=== PATIENT | male | born 1940 | race Caucasian/White ===

== ENCOUNTER 2024-03-03 18:25 | Emergency (ER) | payer MEDICARE, OTHER, SELFPAY ==
[2024-03-03 18:29] VITALS: BP 184/94; PULSE 94; RESP 22; TEMP 36.1; O2SAT 98; BMI 32.3
[2024-03-03 21:55] VITALS: PULSE 93; O2SAT 97
[2024-03-03 22:00] VITALS: PULSE 86; O2SAT 96
--- NOTE | 2024-03-03 23:00 | ED_ITS ---
HPI - Back Pain/Injury General Chief Complaint: Back Pain/Injury Stated Complaint: back pain Time Seen by Provider: 03/03/24 21:47 Source: patient History of Present Illness HPI Narrative: 83-year-old male presents for evaluation of 1 month of progressively worsening lower lumbar back pain. Pain worse when lying down flat, improved with sitting up. Has been taking a muscle relaxer at home for pain relief, he was not remember the name of the muscle relaxer he has been taking. Denies bowel or bladder incontinence, denies saddle anesthesia, denies trauma, use of blood thinners. Denies history of cancer. Patient does not follow up with primary care doctor's. Related Data Previous Rx's Medication Instructions Recorded methocarbamol 500 mg tablet 500 mg PO TID #30 tabs 03/04/24 methylprednisolone 4 mg tablets in 4 mg PO DAILY #21 ea 03/04/24 a dose pack (Medrol (Lakhwinder)) tramadol 50 mg tablet 50 mg PO Q8H PRN pain #14 tabs 03/04/24 Allergies Allergy/AdvReac Type Severity Reaction Status Date / Time No Known Drug Allergies Allergy Verified 03/03/24 18:29 Patient History Social History Smoking Status: Current every day smoker Smoking Status: Current every day smoker tobacco type: pipe alcohol intake frequency: 0-2 drinks per day Alcohol type: hard liquor Substance Use Type: does not use Exam Initial Vital Signs Initial Vital Signs: Vital Signs Temperature 97 F L 03/03/24 18:29 Pulse Rate 94 H 03/03/24 18:29 Respiratory Rate 22 03/03/24 18:29 Blood Pressure 184/94 H 03/03/24 18:29 Pulse Oximetry 98 03/03/24 18:29 Oxygen Delivery Method Room Air 03/03/24 18:29 Const: Awake, alert, no acute distress, nontoxic appearing MSK: Atraumatic, lower lumbar tenderness midline Skin: Warm, Dry, intact, no rashes Neuro: AO x3, CN II-XII grossly intact, moves all extremities Course Orders Ordered: ED Orders 03/03/24 22:30 Urine Culture Stat Urine Microscopic Stat 03/03/24 22:59 CT lumbar spine wo con Stat Discontinued Medications Lidocaine (Lidocaine 5% Patch) 1 each TOP NOW ONE Stop: 03/03/24 23:00 Last Admin: 03/03/24 23:22 Dose: 1 each Documented By: ANDREA Oxycodone HCl (Oxycodone Ir 5 Mg Tablet) 5 mg PO NOW ONE Stop: 03/03/24 23:00 Last Admin: 03/03/24 23:22 Dose: 5 mg Documented By: ANDREA Vital Signs Vital signs: Vital Signs - 8 hr 03/03/24 18:29 Temperature 97 F L Pulse Rate 94 H Respiratory Rate 22 Blood Pressure 184/94 H Pulse Oximetry 98 Oxygen Delivery Method Room Air MDM - Back Pain/Injury Differential Diagnosis Differential diagnosis: Likely lumbar radiculopathy, sciatica and strain of lumbar region Lab Data Labs: Lab Results 03/03/24 Range/Units 22:30 Urine RBC 0-1/hpf (0-5/HPF) Urine WBC 10-30/hpf H (0-5/HPF) Ur Squamous Epith Cells 0-1 /hpf (0-5/HPF) Urine Bacteria Many (>30) H (None) Ur Culture Indicated? Specimen cultured Vol Urine Centrifuged 10ml (spun) Urine Dip Bedside Urine Glucose Negative Bedside Urine Bilirubin - Negative Bedside Urine Ketone - Negative Urine Specific [place] 1.025 Bedside Urine Occult Blood + Bedside Urine pH 5.5 Bedside Urine Protein +/- 15 Bedside Urine Urobilinogen - Negative Bedside Urine Nitrite + Positive Bedside Urine Leukocytes + [address] - cervical spine: Radiologist's Impression: PROCEDURE: CT LUMBAR SPINE WO CON INDICATIONS: 1 MO WORSENING MIDLINE LUMBAR PAIN TECHNIQUE: Noncontrast 3 mm thick sections acquired from the T12 level to the sacrum. Sagittal and coronal reformats were constructed. For radiation dose reduction, the following was used: automated exposure control. COMPARISON: None. FINDINGS: Image quality: Excellent. Bones: Mild levoconvex curvature. No acute vertebral body compression fractures. No suspicious lytic or blastic bony lesions. No pars defects. Mild degenerative changes at the sacroiliac joints with anterior osseous bridging. T12-L1: No significant spinal canal stenosis or neural foraminal narrowing. L1-L2: Mild circumferential disc bulging and bilateral facet hypertrophy, which result in mild narrowing of the neural foramina without significant spinal canal stenosis. L2-L3: Circumferential disc bulging and bilateral facet hypertrophy with buckling of the ligamentum flavum. Findings result in mild narrowing of the spinal canal as well as mild bilateral neural foraminal narrowing. L3-L4: Circumferential disc bulging with moderate to severe bilateral facet hypertrophy and buckling of the ligamentum flavum, which result in moderate to severe narrowing of the spinal canal as well as moderate bilateral neural foraminal narrowing. L4-L5: Circumferential disc bulging with moderate to severe bilateral facet hypertrophy and buckling of the ligamentum flavum. Findings result in moderate to severe narrowing of the spinal canal with effacement of the lateral recesses and moderate to severe left and moderate right neural foraminal narrowing. L5-S1: Circumferential disc bulging and bilateral facet hypertrophy result in severe left and moderate right neural foraminal narrowing without significant spinal canal stenosis. Soft tissues: No retroperitoneal masses or hematomas. Visualized aorta is normal in caliber. A calcified gallstone is present. Exophytic right renal cyst with small peripheral calcification. IMPRESSION: 1. Moderate severe multilevel degenerative disc disease and facet hypertrophy as described in detail in the body of the report. 2. High-grade spinal canal stenosis at the L3-4 and L4-5 disc space levels. 3. High-grade neural foraminal narrowing is seen at the L4-5 and L5-S1 levels on the left. Approved by: Jose Us M.D. on 03/03/2024 at 23:52 MDM Narrative Medical decision making narrative: 1 month of worsening atraumatic lumbar back pain. No signs or symptoms of cauda equina. Patient able to move all extremities on exam with no neurologic deficits. Based on patient's age a CT of the lumbar spine was ordered. CT shows moderate to severe degenerative change and stenosis of the spine. Patient informed of imaging results. Referred to both ortho spine and pain management. Discharged on muscle relaxers, pain medications, and steroid pack. Patient discharged home with ride. Discharge Plan Departure Patient Disposition: Home Clinical Impression: Degenerative joint disease of low back Instructions: DI for Degenerative Disc Disease Activity Restrictions/Additional Instructions: Your CT today shows that you have severe degenerative changes of your lower back. A steroid prescription and muscle relaxers as well as pain medications has been sent to your pharmacy. I highly recommend following up with a spine doctor, and a referral has been provided. If you notice numbness, weakness of your extremities, or are unable to urinate please return for repeat evaluation. Take 1000 mg of Tylenol every 6 hours for pain, take no more than 4000 mg of Tylenol daily. Do not take the pain medication with alcohol or before driving as it may cause dizziness and increase your risk of falls. IMPRESSION: 1. Moderate severe multilevel degenerative disc disease and facet hypertrophy as described in detail in the body of the report. 2. High-grade spinal canal stenosis at the L3-4 and L4-5 disc space levels. 3. High-grade neural foraminal narrowing is seen at the L4-5 and L5-S1 levels on the left. Prescriptions: New methylprednisolone [Medrol (Lakhwinder)] 4 mg tablets,dose pack 4 mg PO DAILY Qty: 21 0RF methocarbamol 500 mg tablet 500 mg PO TID Qty: 30 0RF tramadol 50 mg tablet 50 mg PO Q8H PRN (Reason: pain) Qty: 14 0RF Referrals: Clau Juan PA-C [Primary Care Provider] - Tony Medina MD [Physician] - Lawrence Malagon MD [Physician] - Stand Alone Forms: Patient Portal/API
[2024-03-03] MEDS: LIDOCAINE 5% PATCH 1 EACH TOP (23:22)
[2024-03-03] MEDS: OXYCODONE IR 5 MG TABLET PO (23:22)
[2024-03-03 23:29] VITALS: PULSE 93; O2SAT 90
[2024-03-03 23:30] VITALS: PULSE 92; O2SAT 97
[2024-03-03 23:47] LABS: Bacteria Urine Many (>30); Culture Indicated Urine Specimen Cultured; RBC Urine 0-1/HPF (0-5/HPF); Squamous Epithelial Cell Urine 0-1 /HPF (0-5/HPF); Urine Volume 10mL (spun); WBC Urine 10-30/HPF (0-5/HPF)
[2024-03-04] VITALS: PULSE 57; O2SAT 96
[2024-03-04 00:12] VITALS: BP 143/93; PULSE 86; O2SAT 96
--- NOTE | 2024-03-06 18:41 | PC.NURSE ---
Urine Cx+ -- RX called to [facility], Keflex 500mg PO 1 BID x 7days #[address] Guerra. Spoke to Pt's who is aware.
== END 2024-03-04 00:30 | disposition home or self-care (01) ==
PROVIDERS: Emergency Provider Emergency Medicine; PCP Physician Assistant Medical
DX: M47.816 Spondylosis without myelopathy or radiculopathy, lumbar region (principal)
CPT/HCPCS: 72131; 81003; 81015; 87077; 87086; 87186; 99283; 99284